=== PATIENT | male | born 1975 | race Caucasian/White ===

== ENCOUNTER 2024-05-06 05:19 | Emergency (ER) | payer MEDICAID ==
[~2024-05-06] VITALS: Ht 175.3 cm; Wt 77.3 kg
[2024-05-06] MEDS: insulin regular, human 10 units/0.1 ml syringe SQ ONE ×3 (07:02→10:17)
[2024-05-06] MEDS: normal saline 1000ML IV soln IVB ONE (07:03)
[2024-05-06] MEDS: normal saline 1000ml 1,000 ML IV ONE (07:04)
[2024-05-06 07:21] LABS: BILIRUBIN,URINE NEGATIVE (Neg); CLARITY,URINE CLEAR (Clear); COLOR,URINE YELLOW (Yellow); GLUCOSE, URINE >=1000 mg/dl (Neg); KETONES,URINE TRACE mg/dl (Neg); LEUKOCYTE ESTERASE ,URINE NEGATIVE (Neg); NITRITES, URINE NEGATIVE (Neg); OCCULT BLOOD,URINE NEGATIVE (Neg); PROTEIN,URINE NEGATIVE (Neg); UROBILINOGEN,URINE 0.2 E.U/dL (0.2-1.0)
[2024-05-06 07:23] LABS: UA COLLECTION TYPE CLN CATCH MIDSTREAM
[2024-05-06] MEDS: LORazepam 1 MG tablet PO ONE (07:26)
[2024-05-06 07:31] LABS: BASOPHILS % (AUTO) 0.6 % (0-1); EOSINOPHILS % (AUTO) 0 % (0-6); HEMATOCRIT 36.7 % (42.0-52.0); HEMOGLOBIN 12.5 g/dl (14.0-17.9); LYMPHOCYTES # (AUTO) 1.3 X10'3 (1.1-4.8); LYMPHOCYTES % (AUTO) 20.2 % (21-51); MEAN CORPUSCULAR HEMOGLOBIN 30.6 PG (27.0-31.0); MEAN CORPUSCULAR HGB CONC 34.1 g/dL (33.0-36.5); MEAN CORPUSCULAR VOLUME 89.8 FL (78-98); MEAN PLATELET VOLUME 7.9 FL (7.4-10.4); MONOCYTES # (AUTO) 0.3 X10'3 (0-0.9); MONOCYTES % (AUTO) 5.4 % (2-12); NEUTROPHILS # (AUTO) 4.7 X10'3 (1.8-7.7); NEUTROPHILS % (AUTO) 73.8 % (42-75); PLATELET COUNT 153 X10'3 (140-440); RED BLOOD COUNT 4.09 X10'6 (4.70-6.10); WHITE BLOOD COUNT 6.4 X10'3 (4.5-11.0)
[2024-05-06 07:32] LABS: BACTERIA,URINE FEW /HPF (Neg); RBC,URINE 0-2 /HPF (0-2); SQUAMOUS EPITHELIAL CELL,UR FEW /LPF (FEW); WBC,URINE 0-4 /HPF (0-4)
[2024-05-06 07:52] LABS: ALBUMIN 3.6 G/DL (3.4-5.0); ANION GAP 14 (8-16); BLOOD UREA NITROGEN 9 MG/DL (7-18); BUN/CREATININE RATIO 9.4 (10.0-20.0); CALCIUM 8.3 MG/DL (8.5-10.1); CHLORIDE 104 MMOL/L (99-107); CREATININE 0.96 MG/DL (0.60-1.10); ETHANOL < 10 MG/DL (<10); GLUCOSE 305 MG/DL (70-104); MAGNESIUM 1.5 MG/DL (1.5-2.4); POTASSIUM 3.8 MMOL/L (3.5-5.1); SODIUM 140 MMOL/L (135-145); TOTAL CARBON DIOXIDE 22.4 MMOL/L (24-32); eCRCL 93 ML/MIN; eGFR 83 ML/MIN
[2024-05-06] MEDS ORDERED: HYDR50TA65 PO ×2 (09:02→09:40)
[2024-05-06] MEDS ORDERED: INSU100I31 SQ ×2 (09:02→09:40)
[2024-05-06] MEDS ORDERED: QUET200T31 PO ×2 (09:02→09:40)
[2024-05-06] MEDS ORDERED: BLOO-1139 (09:02)
[2024-05-06 09:09] LABS: URINE AMPHETAMINE SCREEN POSITIVE (Neg); URINE BARBITUATE SCREEN NEGATIVE (Neg); URINE BENZODIAZEPINES SCREEN NEGATIVE (Neg); URINE CANNABINOID SCREEN NEGATIVE (Neg); URINE COCAINE SCREEN NEGATIVE (Neg); URINE METHADONE SCREEN NEGATIVE (Neg); URINE OPIATE SCREEN NEGATIVE (Neg); URINE PHENCYCLIDINE SCREEN NEGATIVE (Neg)
[2024-05-06] MEDS ORDERED: BLOO-1139 SQ (09:40)
[2024-05-06 10:32] VITALS: BP 110/69; PULSE 70; RESP 16; TEMP 97.9; O2SAT 99
[2024-05-09] MEDS ORDERED: HYDR-3686 PO ×2 (14:47→20:53)
[2024-05-09] MEDS ORDERED: QUET-1 PO (20:51)
[2024-05-09] MEDS ORDERED: INSU100I31 (21:35)
== END 2024-05-06 10:38 | disposition home or self-care (01) ==
LOC: ER 05:21
DX: E11.65 Type 2 diabetes mellitus with hyperglycemia (principal); F31.9 Bipolar disorder, unspecified; F15.10 Other stimulant abuse, uncomplicated; R44.0 Auditory hallucinations; Z79.899 Other long term (current) drug therapy; Z79.4 Long term (current) use of insulin; Z91.199 Patient's noncompliance with other medical treatment and regimen due to unspecified reason
CPT/HCPCS: 36415; 80048; 80305; 80320; 81001; 82948; 83735; 85025; 93005; 96360; 96372; 99285; J1815; J7030

== ENCOUNTER 2024-05-08 04:38 | Emergency (ER) | payer MEDICAID ==
[~2024-05-08] VITALS: Ht 175.3 cm; Wt 74.4 kg
[~2024-05-08 04:38] MED LIST: BLOO-1139 SQ; HYDR50TA65 PO; INSU100I31 SQ; QUET200T31 PO
[2024-05-08] MEDS: insulin regular, human 10 units/0.1 ml syringe SQ ONE (05:21)
[2024-05-08] MEDS ORDERED: [UNRECOGNIZED DRUG - CODE] (05:22)
[2024-05-08 05:27] VITALS: BP 122/76; PULSE 72; RESP 16; TEMP 98; O2SAT 98
[2024-05-08] MEDS ORDERED: LORA-269 PO (14:15)
[2024-05-09] MEDS ORDERED: HYDR-3686 PO ×2 (14:47→20:53)
[2024-05-09] MEDS ORDERED: QUET-1 PO (20:51)
[2024-05-09] MEDS ORDERED: INSU100I31 (21:35)
== END 2024-05-08 05:28 | disposition home or self-care (01) ==
LOC: ER 04:38
DX: E11.65 Type 2 diabetes mellitus with hyperglycemia (principal); F31.9 Bipolar disorder, unspecified; F15.90 Other stimulant use, unspecified, uncomplicated; Z79.899 Other long term (current) drug therapy; Z79.4 Long term (current) use of insulin
CPT/HCPCS: 82948; 96372; 99283; J1815

== ENCOUNTER 2024-05-08 13:11 | Emergency (ER) | payer MEDICAID ==
[~2024-05-08] VITALS: Ht 172.7 cm; Wt 74.0 kg
[~2024-05-08 13:11] MED LIST changes: +[UNRECOGNIZED DRUG - CODE]
[2024-05-08 13:12] VITALS: TEMP 97.6
[2024-05-08] MEDS ORDERED: LORA-269 PO (14:15)
[2024-05-08] MEDS: LORazepam 1 MG tablet PO ONE (14:26)
[2024-05-08 15:16] VITALS: BP 121/78; PULSE 89; RESP 16; O2SAT 98
[2024-05-09] MEDS ORDERED: HYDR-3686 PO ×2 (14:47→20:53)
[2024-05-09] MEDS ORDERED: QUET-1 PO (20:51)
[2024-05-09] MEDS ORDERED: INSU100I31 (21:35)
== END 2024-05-08 15:18 | disposition home or self-care (01) ==
LOC: ER 13:11
DX: F20.9 Schizophrenia, unspecified (principal); E11.9 Type 2 diabetes mellitus without complications; F31.9 Bipolar disorder, unspecified; F15.90 Other stimulant use, unspecified, uncomplicated; F99 Mental disorder, not otherwise specified; Z79.4 Long term (current) use of insulin; Z79.899 Other long term (current) drug therapy
CPT/HCPCS: 99283

== ENCOUNTER 2024-05-23 16:57 | Emergency (ER) | payer MEDICAID ==
[~2024-05-23] VITALS: Ht 175.3 cm; Wt 77.7 kg
[~2024-05-23 16:57] MED LIST changes: -BLOO-1139 SQ; +BUS15T PO; +DIVA250T4 PO; +FOLI0.4T14 PO; -HYDR50TA65 PO; -INSU100I31 SQ; +MULT-25 PO; +PALI156D IM; -QUET200T31 PO; -[UNRECOGNIZED DRUG - CODE]; +thiamine tablet PO
[2024-05-23] MEDS: normal saline 1000ML IV soln IVB ONE (17:59)
[2024-05-23 18:13] LABS: BILIRUBIN,URINE NEGATIVE (Neg); CLARITY,URINE CLEAR (Clear); COLOR,URINE YELLOW (Yellow); GLUCOSE, URINE >=1000 mg/dl (Neg); KETONES,URINE TRACE mg/dl (Neg); LEUKOCYTE ESTERASE ,URINE NEGATIVE (Neg); NITRITES, URINE NEGATIVE (Neg); OCCULT BLOOD,URINE NEGATIVE (Neg); PROTEIN,URINE NEGATIVE (Neg); UROBILINOGEN,URINE 0.2 E.U/dL (0.2-1.0)
[2024-05-23 18:16] LABS: UA COLLECTION TYPE CLN CATCH MIDSTREAM
[2024-05-23 18:18] LABS: BASOPHILS % (AUTO) 0.5 % (0-1); EOSINOPHILS % (AUTO) 0.4 % (0-6); HEMATOCRIT 43.3 % (42.0-52.0); HEMOGLOBIN 14.5 g/dl (14.0-17.9); LYMPHOCYTES # (AUTO) 0.9 X10'3 (1.1-4.8); LYMPHOCYTES % (AUTO) 13.8 % (21-51); MEAN CORPUSCULAR HEMOGLOBIN 31.2 PG (27.0-31.0); MEAN CORPUSCULAR HGB CONC 33.5 g/dL (33.0-36.5); MEAN CORPUSCULAR VOLUME 93.2 FL (78-98); MEAN PLATELET VOLUME 9.4 FL (7.4-10.4); MONOCYTES # (AUTO) 0.4 X10'3 (0-0.9); MONOCYTES % (AUTO) 6.2 % (2-12); NEUTROPHILS # (AUTO) 5.4 X10'3 (1.8-7.7); NEUTROPHILS % (AUTO) 79.1 % (42-75); PLATELET COUNT 165 X10'3 (140-440); RED BLOOD COUNT 4.65 X10'6 (4.70-6.10); RED CELL DISTRIBUTION WIDTH 13.3 % (11.5-14.5); WHITE BLOOD COUNT 6.9 X10'3 (4.5-11.0)
[2024-05-23 18:19] LABS: ALBUMIN 3.9 G/DL (3.4-5.0); ANION GAP 15 (8-16); BLOOD UREA NITROGEN 11 MG/DL (7-18); BUN/CREATININE RATIO 8.4 (10.0-20.0); CHLORIDE 94 MMOL/L (99-107); CREATININE 1.31 MG/DL (0.60-1.10); LIPASE 39 U/L (16-77); POTASSIUM 4.1 MMOL/L (3.5-5.1); SODIUM 132 MMOL/L (135-145); TOTAL CARBON DIOXIDE 22.8 MMOL/L (24-32); eCRCL 68 ML/MIN; eGFR 58 ML/MIN
[2024-05-23 18:24] LABS: GLUCOSE 560 MG/DL (70-104)
[2024-05-23 18:30] LABS: BACTERIA,URINE NONE SEEN /HPF (Neg); RBC,URINE NONE SEEN /HPF (0-2); SQUAMOUS EPITHELIAL CELL,UR NONE SEEN /LPF (FEW); WBC,URINE NONE SEEN /HPF (0-4)
[2024-05-23] MEDS: insulin regular, human 10 units/0.1 ml syringe IV ONE ×2 (19:33→20:40)
[2024-05-23] MEDS: normal saline 1000ml 1,000 ML IV ONE (19:55)
[2024-05-23] MEDS ORDERED: BLOO1EAC70 MC (21:28)
[2024-05-23] MEDS ORDERED: [UNRECOGNIZED DRUG - CODE] SUBCUT (21:28)
[2024-05-23 21:42] VITALS: BP 109/64; PULSE 60; RESP 16; TEMP 98; O2SAT 96
== END 2024-05-23 21:44 | disposition home or self-care (01) ==
LOC: ER 16:57
DX: E11.65 Type 2 diabetes mellitus with hyperglycemia (principal); F31.9 Bipolar disorder, unspecified; F15.90 Other stimulant use, unspecified, uncomplicated; Z79.899 Other long term (current) drug therapy
CPT/HCPCS: 36415; 80048; 81001; 82948; 83690; 85025; 96361; 96374; 96376; 99285; J1815; J7030